=== PATIENT | female | born 1990 | race American Indian/Alaskan Native ===

== ENCOUNTER 2021-06-05 19:27 | Emergency (ER) | payer SELFPAY ==
[2021-06-05] MEDS ORDERED: HYDROcodone/ACETAMINOPHEN 5-325 MG TAB PO ONE (21:13)
[2021-06-05] MEDS ORDERED: methylPREDNISolone Sod Succinate 125 MG/2 ML INJ IM ONE (21:13)
[2021-06-05] MEDS ORDERED: IPRATROPIUM/ALBUTEROL SULFATE 3 ML AMPUL.NEB IH ONE (21:13)
--- NOTE | 2021-06-05 21:14 | Emergency Department Report ---
ED Asthma HPI - General Chief Complaint: Adult Asthma Stated Complaint: BODY PAIN/CHEST PAIN/ASTHMA PUI?: Yes Time Seen by Provider: 06/05/21 21:06 Source: patient Mode of arrival: Ambulatory Limitations: No Limitations - History of Present Illness Initial Comments: 31-year-old morbidly obese -[place] female with a known history of asthma and fibromyalgia presents to the ER today with complaints of asthma flareup. She states her symptoms started 2 days ago. She states that she has been out of her albuterol MDI as well as a nebulizer machine. Patient reports dry cough, wheezing, "a little" shortness of breath, and some anterior chest tightness. She also reports generalized body pain but this is secondary to her fibromyalgia. She states that she has been vaccinated against COVID-19. She denies any ill contacts or recent travel. She states that she was last admitted for her asthma in 2019 but she has never been intubated for it in the past. She does admit to tobacco use. MD Complaint: "asthma attack" - Related Data Previous Rx's Medication Instructions Recorded Last Taken Type ALBUTEROL NEB's [Proventil 0.083% 2.5 mg IH QID PRN #30 neb 06/06/21 Unknown Rx NEBS] Acetaminophen/Codeine [Tylenol 1 tab PO Q6H PRN #12 tab 06/06/21 Unknown Rx /Codeine # 3 tab] Albuterol Mdi (or & Nicu Only) 2 puff IH QID PRN #8.5 gram 06/06/21 Unknown Rx [ProAir HFA Inhaler] predniSONE [Deltasone] 50 mg PO QDAY #4 tab 06/06/21 Unknown Rx Allergies Allergy/AdvReac Type Severity Reaction Status Date / Time peanut Allergy Swelling Verified 06/05/21 21:01 peanut oil Allergy Swelling Verified 06/05/21 21:01 shellfish derived Allergy Swelling Verified 06/05/21 21:01 ED Review of Systems ROS: Stated complaint: BODY PAIN/CHEST PAIN/ASTHMA Other details as noted in HPI Comment: All other systems reviewed and negative Constitutional: denies: chills, fever Eyes: denies: eye pain, eye discharge, vision change ENT: denies: ear pain, throat pain Respiratory: cough, shortness of breath, wheezing Cardiovascular: chest pain (Chest tightness ) Gastrointestinal: denies: abdominal pain, nausea, diarrhea, constipation, hematemesis Genitourinary: denies: urgency, dysuria, frequency, hematuria, discharge, abnormal menses, dyspareunia Musculoskeletal: denies: back pain, joint swelling, arthralgia Skin: denies: rash, lesions, change in color, change in hair/nails Neurological: denies: headache, weakness, numbness, paresthesias, confusion, abnormal gait, vertigo Psychiatric: denies: anxiety, depression, auditory hallucinations, visual hallucinations, homicidal thoughts, suicidal thoughts Hematological/Lymphatic: denies: easy bleeding, easy bruising, swollen glands ED Past Medical Hx - Past Medical History Hx Diabetes: Yes (diet controlled) Hx Asthma: Yes Additional medical history: obesity - Surgical History Past Surgical History?: No - Medications Home Medications: Home Medications Medication Instructions Recorded Confirmed Last Taken Type ALBUTEROL NEB's [Proventil 0.083% 2.5 mg IH QID PRN #30 neb 06/06/21 Unknown Rx NEBS] Acetaminophen/Codeine [Tylenol 1 tab PO Q6H PRN #12 tab 06/06/21 Unknown Rx /Codeine # 3 tab] Albuterol Mdi (or & Nicu Only) 2 puff IH QID PRN #8.5 gram 06/06/21 Unknown Rx [ProAir HFA Inhaler] predniSONE [Deltasone] 50 mg PO QDAY #4 tab 06/06/21 Unknown Rx ED Physical Exam - General Limitations: No Limitations General appearance: alert, in no apparent distress - Head Head exam: Present: atraumatic, normocephalic, normal inspection - Eye Eye exam: Present: normal appearance, PERRL, EOMI Pupils: Present: normal accommodation - Neck Neck exam: Present: normal inspection, full ROM. Absent: meningismus - Respiratory Respiratory exam: Present: normal lung sounds bilaterally, wheezes, decreased breath sounds. Absent: respiratory distress, rales, rhonchi - Cardiovascular Cardiovascular Exam: Present: normal rhythm, tachycardia, normal heart sounds - GI/Abdominal GI/Abdominal exam: Present: soft. Absent: distended, tenderness, guarding, rebound - Neurological Exam Neurological exam: Present: alert, oriented X3, CN II-XII intact, normal gait - Psychiatric Psychiatric exam: Present: normal affect, normal mood - Skin Skin exam: Present: intact ED Course Vital Signs 06/05/21 06/05/21 06/05/21 20:56 21:30 22:30 Temperature 98.8 F Pulse Rate 122 H Pulse Rate [ 90 87 Bilateral Throughout] Respiratory 24 Rate Respiratory 18 18 Rate [Bilateral Throughout] Blood Pressure 189/88 [Right] O2 Sat by Pulse 92 Oximetry 06/05/21 23:36 Temperature Pulse Rate 90 Pulse Rate [ Bilateral Throughout] Respiratory 18 Rate Respiratory Rate [Bilateral Throughout] Blood Pressure 150/88 [Right] O2 Sat by Pulse 97 Oximetry ED Medical Decision Making - Radiology Data Radiology results: report reviewed Patient: PAT HDZ MR#: [id number] 8 : 1990 Acct:[id number] Age/Sex: 31 / F ADM Date: 06/05/21 Loc: ED Attending Dr: Ordering Physician: KARTHIKEYAN FOSTER Date of Service: 06/05/21 Procedure(s): XR chest routine 2V Accession Number(s): [id number] cc: KARTHIKEYAN FOSTER Fluoro Time In Minutes: CHEST 2 VIEWS INDICATION / CLINICAL INFORMATION: Cough/wheezing. COMPARISON: None available. FINDINGS: SUPPORT DEVICES: None. HEART / MEDIASTINUM: No significant abnormality. LUNGS / PLEURA: Mild peribronchial thickening. No focal airspace disease. No pneumothorax. ADDITIONAL FINDINGS: No significant additional findings. IMPRESSION: 1. Mild peribronchial thickening can be seen with small airways disease. No focal airspace disease. Signer Name: Vlad Dubon MD Signed: 06/05/2021 9:46 PM Workstation Name: [id number] Transcribed By: DB Dictated By: VLAD DUBON MD Electronically Authenticated By: VLAD DUBON MD Signed Date/Time: 06/05/212145 DD/ 44 TD/TT: - Medical Decision Making 2224: CXR shows nothing acute. Patient requesting another neb treatment. Repeat lung exam shows she is moving air better but she still has some wheezing. She is not any respiratory distress. She has been observed arguing on the phone with someone since she is arrived and in full sentences. Xopenex treatment ordered. We will get repeat vital signs after next treatment. 1159: Patient reports feeling better. Repeat chest exam shows that wheezing has much improved and patient is moving air well. She is again not in any respiratory distress. She has been on her phone talking the entire time, and incomplete in clear sentences. Repeat vital signs show improvement for heart rate, respiratory rate and O2 after treatments. Patient will be discharged home with refills on her medications, as well as a few days of steroids. Patient will be given referral to PCP. Patient understands to return if worse. Critical care attestation.: If time is entered above; I have spent that time in minutes in the direct care of this critically ill patient, excluding procedure time. ED Disposition Clinical Impression: Asthma exacerbation Disposition: HOME / SELF CARE / HOMELESS Is pt being admited?: No Does the pt Need Aspirin: No Condition: Stable Instructions: Asthma, Adult, [id number] Additional Instructions: I recommend that you get the albuterol, as well as albuterol nebulizer, and the prednisone filled and take as prescribed. You can take the Tylenol threes as prescribed to help with pain. Follow-up with the primary care doctor listed on discharge instructions. Recommend that she avoid tobacco use. Return to the ER if your symptoms worsens or changes in any way. Prescriptions: predniSONE [Deltasone] 50 mg PO QDAY #4 tab Albuterol Mdi (or & Nicu Only) [ProAir HFA Inhaler] 2 puff IH QID PRN #8.5 gram PRN Reason: Shortness Of Breath ALBUTEROL NEB's [Proventil 0.083% NEBS] 2.5 mg IH QID PRN #30 neb PRN Reason: Wheezing Acetaminophen/Codeine [Tylenol /Codeine # 3 tab] 1 tab PO Q6H PRN #12 tab PRN Reason: Pain , Severe (7-10) Referrals: SUNG ENGEL MD [Staff Physician] - 3-5 Days Forms: Work/School Release Form(ED) Time of Disposition: 00:01
--- NOTE | 2021-06-05 21:50 | XRay Report ---
CHEST 2 VIEWS INDICATION / CLINICAL INFORMATION: Cough/wheezing. COMPARISON: None available. FINDINGS: SUPPORT DEVICES: None. HEART / MEDIASTINUM: No significant abnormality. LUNGS / PLEURA: Mild peribronchial thickening. No focal airspace disease. No pneumothorax. ADDITIONAL FINDINGS: No significant additional findings. IMPRESSION: 1. Mild peribronchial thickening can be seen with small airways disease. No focal airspace disease. Signer Name: Vlad Dubon MD Signed: 06/05/2021 9:46 PM Workstation Name: [id number]
[2021-06-05] MEDS ORDERED: LEVALBUTEROL 0.63 MG/3 ML NEBU IH ONE (22:23)
[2021-06-05 23:38] VITALS: BP 150/88
== END 2021-06-06 00:15 | disposition home or self-care (01) ==
LOC: ED 19:27
DX: J45.901 Unspecified asthma with (acute) exacerbation (principal); E11.9 Type 2 diabetes mellitus without complications; Z91.010 Allergy to peanuts; Z91.013 Allergy to seafood; Z79.899 Other long term (current) drug therapy
CPT/HCPCS: 71046; 94640; 96372; 99283; J2930; 94644